=== PATIENT | male | born 1970 | race Caucasian/White ===

== ENCOUNTER 2019-04-08 07:48 | Emergency (ER) | payer MEDICAID, OTHER ==
[~2019-04-08] VITALS: Wt 70.5 kg
--- NOTE | 2019-04-08 10:05 | ERD ---
ER Documentation Chief Complaint Chief Complaint r. foot wound, homeless HPI This is a 49-year-old male who is here because his right ankle hurts and he has some wounds to his right dorsal foot. Patient says he drinks regularly and and wears hiking boots with no socks. He said he just got these new boots and he wa s not wearing socks when he is doing lots of walking creating some rubbing on the top of his foot from the leather. He says he was drinking and he thinks he twisted his ankle. He has right ankle pain and swelling on the lateral malleolus. No other fall did not hit his head or no neck pain ROS All systems reviewed and are negative except as per history of present illness. Medications Home Meds No Active Prescriptions or Reported Meds Allergies Allergies: Coded Allergies: No Known Allergy (Unverified , 04/19/12) PMhx/Soc Medical and Surgical Hx: pt denies Medical Hx, pt denies Surgical Hx Hx Alcohol Use: Yes (ETOH) Hx Substance Use: No Hx Tobacco Use: No Smoking Status: Never smoker FmHx Family History: No coronary disease Physical Exam Vitals Vital Signs Date Temp Pulse Resp B/P (MAP) Pulse Ox O2 O2 Flow FiO2 Time Delivery Rate 04/08/19 98.4 84 20 148/72 100 07:54 (97) Physical Exam Const: Well-developed, well-nourished Head: Atraumatic, normocephalic Eyes: Normal Conjunctiva, PERRLA, EOMI, normal sclera, no nystagmus ENT: Normal External Ears, Nose and Mouth, moist mucus membranes. Neck: Full range of motion. No meningismus, no lymphadenopathy. Resp: Clear to auscultation bilaterally, no wheezing, rhonchi, rales Cardio: Regular rate and rhythm, no murmurs, S1 S2 present Abd: Soft, non tender x 4, non distended. Normal bowel sounds, no guarding or rebound, no pulsitile abdominal masses or bruits Skin: No petechiae or rashes, no ecchymosis , no maculopapular rash Back: No midline or flank tenderness Ext: No cyanosis, or edema, FROM x 4, normal inspection, neurovascularly intact x 4, right ankle swelling with some pain with range of motion there also some scattered small superficial skin abrasions from rubbing on his boots Neur: Awake and alert, STR 5/5 x 4, sensation intact x 4, no focal findings, cerebellum intact Psych: Normal Mood and Affect Procedures/MDM [place] [address] Radiology Main Line: [phone] DIAGNOSTIC IMAGING REPORT Patient: MADDISON LEON : 1970 Age: 49 Sex: M MR #: [id number] DOS: 04/08/19923 Ordering MD: MICHEL JHA DO Location: E/R Room/Bed: PROCEDURE: XR right foot. CLINICAL INDICATION: Pain. TECHNIQUE: 5 views of the right foot were obtained. COMPARISON: None. FINDINGS: There is no acute fracture or dislocation. Mild to moderate degenerative changes are seen at the first metatarsophalangeal joint. Mild degenerative changes are seen throughout the remainder of the foot. There is soft tissue swelling along the dorsum of the foot. IMPRESSION: 1. No acute osseous abnormality. 2. Mild to moderate degenerative changes of the foot as above. 3. Soft tissue swelling along the dorsum of the foot. RPTAT: AAEE Physician Kerry Date Time Electronically viewed and signed by Brodie Ignacio Physician on 04/08/2019 09:57 RF/ CC: MICHEL JHA DO [id number] [place] [address] Radiology Main Line: [phone] DIAGNOSTIC IMAGING REPORT Patient: MADDISON LEON : 1970 Age: 49 Sex: M MR #: [id number] DOS: 04/08/19923 Ordering MD: MICHEL JHA DO Location: E/R Room/Bed: PROCEDURE: XR right foot. CLINICAL INDICATION: Pain. TECHNIQUE: 5 views of the right foot were obtained. COMPARISON: None. FINDINGS: There is no acute fracture or dislocation. Mild to moderate degenerative changes are seen at the first metatarsophalangeal joint. Mild degenerative changes are seen throughout the remainder of the foot. There is soft tissue swelling along the dorsum of the foot. IMPRESSION: 1. No acute osseous abnormality. 2. Mild to moderate degenerative changes of the foot as above. 3. Soft tissue swelling along the dorsum of the foot. RPTAT: AAEE Brodie Ignacio Physician Date Time Electronically viewed and signed by Brodie Ignacio Physician on 04/08/2019 09:57 RF/ CC: MICHEL JHA DO [id number] Patient has a right ankle sprain no fracture. We will dress his wounds and give him a ankle splint and crutches Departure Diagnosis: Primary Impression: Right ankle sprain Encounter type: initial encounter Involved ligament of ankle: unspecified ligament Qualified Codes: S93.401A - Sprain of unspecified ligament of right ankle, initial encounter Additional Impression: Skin abrasion Condition: Stable MIHCEL JHA DO Apr 08, 2019 10:05
[2019-04-08] MEDS ORDERED: IBUP800T48 PO (10:06)
[2019-04-08] MEDS ORDERED: CEPH-443 PO (10:06)
[2019-04-08 12:23] VITALS: BP 153/94; PULSE 86; RESP 18
== END 2019-04-08 12:59 | disposition home or self-care (01) ==
LOC: E/R 07:48
DX: S93.401A Sprain of unspecified ligament of right ankle, initial encounter (principal); S90.511A Abrasion, right ankle, initial encounter; R40.2252 Coma scale, best verbal response, oriented, at arrival to emergency department; R40.2142 Coma scale, eyes open, spontaneous, at arrival to emergency department; R40.2362 Coma scale, best motor response, obeys commands, at arrival to emergency department; X58.XXXA Exposure to other specified factors, initial encounter; Y92.9 Unspecified place or not applicable
CPT/HCPCS: 73630